=== PATIENT | male | born 1990 | race Two or more races ===

== ENCOUNTER → 2023-11-02 | Outpatient (CLI) | payer OTHER ==
[~2023-11-02] MED LIST: HYDACE5 PO; Ultram50 MG PO
[2023-11-02 17:15] LABS: BASOPHILS ABSOLUTE AUTO 0.07 K/mm3 (0.00-0.23); BASOPHILS PERCENT AUTO 1 % (0-2); EOSINOPHILS ABSOLUTE AUTO 0.44 K/mm3 (0.00-0.68); EOSINOPHILS PERCENT AUTO 5 % (0-6); Hematocrit 48.3 % (37.0-53.0); Hemoglobin 16.5 g/dL (13.5-17.5); IMMATURE GRAN ABSOLUTE AUTO 0.02 K/mm3 (0.00-0.10); IMMATURE GRAN PERCENT AUTO 0 % (0-1); LYMPHOCYTES ABSOLUTE AUTO 3.09 K/mm3 (0.84-5.20); LYMPHOCYTES PERCENT AUTO 37 % (21-46); MONOCYTES ABSOLUTE AUTO 0.76 K/mm3 (0.16-1.47); MONOCYTES PERCENT AUTO 9 % (4-13); Mean Corpuscular HGB 31.3 pg (26.0-34.0); Mean Corpuscular HGB Conc 34.2 g/dL (31.5-36.5); Mean Corpuscular Volume 92 fL (80-100); Mean Platelet Volume 10.6 fL (9.1-12.4); NEUTROPHILS ABSOLUTE AUTO 4.08 K/mm3 (1.96-9.15); NEUTROPHILS PERCENT AUTO 48 % (41-73); Platelet Count 315 K/mm3 (150-400); RDW Coefficient Variation 12.3 % (11.7-14.2); RDW Standard Deviation 41.8 fL (35.1-46.3); Red Blood Cell Count 5.27 M/mm3 (4.30-5.90); White Blood Cell Count 8.46 K/mm3 (4.00-11.30)
[2023-11-02 18:40] LABS: CHOL/HDL RATIO 7.4; Cholesterol 208 mg/dL (50-200); HDL Cholesterol 28 mg/dL (>39); LDL/HDL RATIO 3.7; Low Density Lipoprotein Chol 103 mg/dL (0-110); Triglycerides 386 mg/dL (30-140); Very Low Density Lipoprot Chol 77 mg/dL (6-28)
[2023-11-04 10:08] LABS: A/G RATIO 1.7 (1.2-2.2); ALKALINE PHOSPHATASE, S 74 IU/L (44-121); ALT (SGPT) 24 IU/L (0-44); AST (SGOT) 19 IU/L (0-40); BILIRUBIN, TOTAL <0.2 mg/dL (0.0-1.2); BUN 13 mg/dL (6-20); BUN/CREATININE RATIO 18 (9-20); CALCIUM, SERUM 9.7 mg/dL (8.7-10.2); CARBON DIOXIDE, TOTAL 21 mmol/L (20-29); CHLORIDE, SERUM 106 mmol/L (96-106); CREATININE, SERUM 0.74 mg/dL (0.76-1.27); GLOBULIN, TOTAL 2.6 g/dL (1.5-4.5); GLUCOSE, SERUM 91 mg/dL (70-99); POTASSIUM, SERUM 4.7 mmol/L (3.5-5.2); PROTEIN, TOTAL, SERUM 7.1 g/dL (6.0-8.5); SODIUM, SERUM 141 mmol/L (134-144)
== END ==
LOC: LAB SHORT 12:26 → LAB 12:26
PROVIDERS: Family Medicine
DX: Z00.00 Encounter for general adult medical examination without abnormal findings (principal); Z13.6 Encounter for screening for cardiovascular disorders; R53.83 Other fatigue
CPT/HCPCS: 80053; 80061; 84443; 85025

== ENCOUNTER → 2024-05-30 | Outpatient (CLI) | payer OTHER | END | disposition home or self-care (01) | LOC: LAB SHORT 15:32 → LAB 15:32 | DX: B35.3 Tinea pedis (principal) | CPT/HCPCS: 87220 ==

== ENCOUNTER → 2024-05-31 | Outpatient (CLI) | payer OTHER | LOC: PLD 07:58 → LAB 07:58 → LAB SHORT 07:58 | DX: L60.2 Onychogryphosis (principal); B35.1 Tinea unguium | CPT/HCPCS: 88305; 88312 ==